=== PATIENT | female | born 1990 ===

== ENCOUNTER 2018-09-08 21:58 | Emergency (ER) | payer OTHER ==
[~2018-09-08] VITALS: Ht 172.7 cm; Wt 68.0 kg
[~2018-09-08 21:58] MED LIST: INTEGRA PLUS C1 EACH PO; WELLBUTRIN XL300 MG
[2018-09-09] MEDS ORDERED: ZOFRAN4 MG PO (05:56)
[2018-09-09] MEDS ORDERED: ZANTAC300 MG PO ×2 (05:56→05:57)
== END 2018-09-09 05:49 | disposition home or self-care (01) ==
LOC: ER 21:58
DX: G43.909 Migraine, unspecified, not intractable, without status migrainosus (principal); R11.0 Nausea

== ENCOUNTER 2022-03-06 07:42 | Day surgery (SDC) | payer OTHER ==
[~2022-03-06] VITALS: Ht 175.3 cm; Wt 71.2 kg
[~2022-03-06 07:42] MED LIST changes: +DEPLIN PO; +VISTARIL25 MG PO; +ZANTAC300 MG PO; +ZOFRAN4 MG PO
[2022-03-06] MEDS ORDERED: MORGIDOX100 MG PO (18:48)
[2022-03-06] MEDS ORDERED: NAPR500T14 PO (18:49)
== END 2022-03-06 21:15 | disposition home or self-care (01) ==
LOC: CIR.AMB 07:42
PROVIDERS: ATTEND Obstetrics & Gynecology
DX: O02.1 Missed abortion (principal); N87.1 Moderate cervical dysplasia; Z20.822 Contact with and (suspected) exposure to COVID-19; G43.909 Migraine, unspecified, not intractable, without status migrainosus

== ENCOUNTER 2023-02-05 08:42 | Outpatient (CLI) | payer OTHER ==
[~2023-02-05 08:42] MED LIST changes: +MORGIDOX100 MG PO; +NAPR500T14 PO
== END 2023-02-05 08:52 | disposition home or self-care (01) ==
LOC: SONOGRAMA 08:42
PROVIDERS: ATTEND Obstetrics & Gynecology Reproductive Endocrinology
DX: N93.8 Other specified abnormal uterine and vaginal bleeding (principal)